=== PATIENT | female | born 1965 ===

== ENCOUNTER 2017-03-14 11:37 | Observation (INO) | payer MEDICAID ==
--- NOTE | 2017-03-14 11:58 | DR.H&P ---
H&P - History & Physical for Day of: H&P Date: 03/14/17 - Chief Complaint Chief Complaint: SOB/increasing peripheral edema - History of Present Illness History of Present Illness: Pt is a 52 y/o BF with h/o CHF. Pt seen in the office twice this week due to increasing peripheral edema and increasing SOB and has been refusing admission. Pt has been given IM lasix on two different occasions in the office this week and has continued to gain wt - 5 lb wt gain this week. Pt is being admitted for further w/u due to outpt tx failure. - Past Medical History Past Medical History: CHF (PAD) - Social History Does patient currently use any type of tobacco product: No Have you used tobacco products in the last 12 months: No Alcohol Use: None Drug Use: None - Review of Systems Constitutional: See HPI Eyes: No Symptoms Reported ENT: No Symptoms Reported Respiratory: No Symptoms Reported Cardiovascular: See HPI Gastrointestinal: No Symptoms Reported Genitourinary: No Symptoms Reported Musculoskeletal: No Symptoms Reported Skin: No Symptoms Reported Neurological: No Symptoms Reported Oriented: Normal Eyes: Normal Ear: Normal Nose: Normal Throat: Normal Respiratory: RLL Rales, LLL Rales Cardiovascular: Normal Auscultation: Bowel Sounds: Normal Palpation: Normal Tenderness: Normal Skin: Normal Musculoskeletal: Normal Psychiatric: Normal Mood Description: Calm Affect: Angry Speech Pattern: Clear - Assessment/Plan (1) Acute CHF Qualifiers: Congestive heart failure type: C Status: Acute Plan: see orders
[2017-03-14] MEDS ORDERED: LASIX IVP SCH (12:00)
--- NOTE | 2017-03-14 12:05 | DR.H&P ---
H&P - History & Physical for Day of: H&P Date: 03/14/17 - Chief Complaint Chief Complaint: SOB/increasing peripheral edema - History of Present Illness History of Present Illness: 52 y/o BF presented to the office for her 3rd visit this week c/o increasing SOB and peripheral edema. Pt has been previously given IM lasix on two occasionals this week and has continued to have a 5 lb wt gain this week. Pt was previously refusing admission but now is agreeable due to lack of improvement in her symptoms. Pt denies any chest pain or palpitations. Pt is being admitted due to outpt tx failure. - Past Medical History Past Medical History: CHF (PAD), Hypertension - Social History Does patient currently use any type of tobacco product: No Have you used tobacco products in the last 12 months: No Alcohol Use: None Drug Use: None - Review of Systems Constitutional: See HPI Eyes: No Symptoms Reported ENT: No Symptoms Reported Respiratory: See HPI Cardiovascular: No Symptoms Reported Gastrointestinal: No Symptoms Reported Genitourinary: No Symptoms Reported Musculoskeletal: No Symptoms Reported Skin: No Symptoms Reported Neurological: No Symptoms Reported Oriented: Normal Eyes: Normal Ear: Normal Nose: Normal Throat: Normal Respiratory: RLL Rales, LLL Rales Cardiovascular: Normal : Normal Auscultation: Bowel Sounds: Normal Palpation: Normal Tenderness: Normal Skin: Normal Musculoskeletal: Left, Thigh (edema), Leg (edema) Psychiatric: Normal Mood Description: Calm Affect: Normal - Assessment/Plan (1) Acute CHF Qualifiers: Congestive heart failure type: C Status: Acute Plan: 1. Admit due to outpt tx failure. 2. Telemetry. 3. O2 at 2L/min per NC. 4. CXR. 5. Lasix 40mg IV q 12 hours. 6. Continue home meds. 7. Serial EKG's and cardiac profiles. 8. Closely monitor BP. 9. For further orders see chart.
[2017-03-14 21:01] LABS: BASOPHILS # (AUTO) 0.1 X10^3/uL (0.0-0.1); EOSINOPHILS # (AUTO) 0.3 x10^3/uL (0.0-0.2); EOSINOPHILS % (AUTO) 3.4 % (0.9-2.9); HEMATOCRIT 36.4 % (36.0-47.0); HEMOGLOBIN 11.9 g/dL (12.0-16.0); LYMPHOCYTES # (AUTO) 2.5 X10^3/uL (1.3-2.9); MEAN CORPUSCULAR HEMOGLOBIN 25.2 pg (27.0-34.0); MEAN CORPUSCULAR HGB CONC 32.8 g/dL (33.0-35.0); MEAN CORPUSCULAR VOLUME 76.9 fL (80.0-100.0); MONOCYTES # (AUTO) 0.6 x10^3/uL (0.3-0.8); MONOCYTES % (AUTO) 7.6 % (0.0-13.0); NEUTROPHILS # (AUTO) 4.8 x10^3/uL (2.2-4.8); PLATELET COUNT 267 X10^3/uL (150.0-450.0); RED BLOOD COUNT 4.73 X10^6/uL (3.5-5.4); RED CELL DISTRIBUTION WIDTH 15.2 % (11.6-16.5); WHITE BLOOD COUNT 8.3 X10^3/uL (3.6-10.0)
[2017-03-14 21:27] LABS: ALANINE AMINOTRANSFERASE 38 Units/L (12-78); ALBUMIN 2.8 g/dL (3.4-5.0); ALKALINE PHOSPHATASE 101 Units/L (46-116); ASPARTATE AMINO TRANSFERASE 19 Units/L (15-37); BLOOD UREA NITROGEN 21 mg/dL (7-18); CALCIUM 8.6 mg/dL (8.5-10.1); CARBON DIOXIDE 24.4 mmol/L (21-32); CHLORIDE 110 mmol/L (98-107); CKMB % 1.4 % (<4); COR CA(FOR HYPOALB) 9.6 mg/dL (8.5-10.1); COR NA(FOR HYPERGLY) 147 mmol/L (136-145); CREATINE KINASE 122 Units/L (26-192); CREATINE KINASE MB 1.7 ng/mL (0-4.0); CREATININE 0.92 mg/dL (0.55-1.02); GLUCOSE 254 mg/dL (65-99); SODIUM 143 mmol/L (136-145); TOTAL PROTEIN 6.4 g/dL (6.4-8.2); TROPONIN I 0.21 ng/mL (0-1.5); eGFR BLACK RACES > 60 (>60); eGFR NON BLACK RACES > 60 (>60)
[2017-03-14 21:30] LABS: HYPOCHROMASIA SLIGHT; MICROCYTOSIS SLIGHT; PLATELET MORPHOLOGY COMMENT NORMAL (NORMAL)
[2017-03-14] MEDS: LASIX IVP SCH (23:00)
[2017-03-14 23:53] VITALS: BMI 33.3
[2017-03-15 01:29] LABS: BILIRUBIN,URINE NEGATIVE (NEGATIVE); BLOOD/HEMOGLOBIN,URINE 3+ (NEGATIVE); GLUCOSE, URINE 3+ (NEGATIVE); KETONES,URINE NEGATIVE (NEGATIVE); LEUKOCYTE ESTERASE ,URINE NEGATIVE (NEGATIVE); NITRITES,URINE NEGATIVE (NEGATIVE); PROTEIN,URINE 3+ (NEGATIVE); UROBILINOGEN,URINE NORMAL (NORMAL)
[2017-03-15 01:39] LABS: APPEARANCE,URINE CLEAR (CLEAR); BACTERIA,URINE TRACE /HPF (NEGATIVE); COLOR,URINE YELLOW (YELLOW); RBC,URINE 0-3 /HPF (NEGATIVE); SQUAMOUS EPITHELIAL CELL,UR MODERATE /HPF (NEGATIVE)
[2017-03-15 01:49] LABS: CKMB % 1.3 % (<4); CREATINE KINASE MB 1.6 ng/mL (0-4.0); TROPONIN I 0.2 ng/mL (0-1.5)
[2017-03-15 07:30] LABS: BASOPHILS # (AUTO) 0.1 X10^3/uL (0.0-0.1); BASOPHILS % (AUTO) 1.1 % (0.2-1.0); EOSINOPHILS # (AUTO) 0.3 x10^3/uL (0.0-0.2); EOSINOPHILS % (AUTO) 4.1 % (0.9-2.9); HEMATOCRIT 34.9 % (36.0-47.0); HEMOGLOBIN 11.5 g/dL (12.0-16.0); LYMPHOCYTES % (AUTO) 27.7 % (21.0-51.0); MEAN CORPUSCULAR HEMOGLOBIN 25.6 pg (27.0-34.0); MEAN CORPUSCULAR HGB CONC 33.1 g/dL (33.0-35.0); MEAN CORPUSCULAR VOLUME 77.5 fL (80.0-100.0); MEAN PLATELET VOLUME 9.3 fL (7.4-11.0); MONOCYTES # (AUTO) 0.5 x10^3/uL (0.3-0.8); MONOCYTES % (AUTO) 7.7 % (0.0-13.0); NEUTROPHILS # (AUTO) 4.2 x10^3/uL (2.2-4.8); NEUTROPHILS % (AUTO) 59.4 % (42.0-75.0); PLATELET COUNT 213 X10^3/uL (150.0-450.0); RED CELL DISTRIBUTION WIDTH 15.1 % (11.6-16.5); WHITE BLOOD COUNT 7.1 X10^3/uL (3.6-10.0)
[2017-03-15 07:31] LABS: HYPOCHROMASIA SLIGHT; PLATELET MORPHOLOGY COMMENT NORMAL (NORMAL)
[2017-03-15 07:45] LABS: ALANINE AMINOTRANSFERASE 38 Units/L (12-78); ALBUMIN 2.8 g/dL (3.4-5.0); ALKALINE PHOSPHATASE 94 Units/L (46-116); ASPARTATE AMINO TRANSFERASE 23 Units/L (15-37); BLOOD UREA NITROGEN 18 mg/dL (7-18); CALCIUM 8.3 mg/dL (8.5-10.1); CARBON DIOXIDE 27.9 mmol/L (21-32); CHLORIDE 108 mmol/L (98-107); COR CA(FOR HYPOALB) 9.3 mg/dL (8.5-10.1); COR NA(FOR HYPERGLY) 148 mmol/L (136-145); CREATININE 0.78 mg/dL (0.55-1.02); GLUCOSE 238 mg/dL (65-99); SODIUM 145 mmol/L (136-145); TOTAL PROTEIN 5.9 g/dL (6.4-8.2); eGFR BLACK RACES > 60 (>60); eGFR NON BLACK RACES > 60 (>60)
[2017-03-15 08:00] LABS: CKMB % 1.5 % (<4); CREATINE KINASE MB 1.7 ng/mL (0-4.0); TROPONIN I 0.21 ng/mL (0-1.5)
[2017-03-15] MEDS ORDERED: LASIX PO SCH (09:00)
[2017-03-15] MEDS: LASIX IVP SCH (10:52)
[2017-03-15] MEDS ORDERED: NORCO 10/325 TAB PO PRN (11:27)
[2017-03-15] MEDS ORDERED: PHENERGAN TAB 25 MG PO PRN (11:27)
[2017-03-15] MEDS ORDERED: ALDACTONE TAB 25 MG PO SCH (12:00)
[2017-03-15] MEDS ORDERED: COREG TAB 25 MG PO SCH (12:00)
[2017-03-15] MEDS ORDERED: CLARITIN PO SCH (12:00)
[2017-03-15] MEDS ORDERED: GLUCOPHAGE PO SCH (12:00)
[2017-03-15] MEDS ORDERED: PROTONIX TAB 40 MG PO SCH (12:00)
[2017-03-15] MEDS ORDERED: TOPROL XL PO SCH (12:00)
[2017-03-15] MEDS ORDERED: ZESTRIL TAB 20 MG PO SCH (12:00)
[2017-03-15] MEDS ORDERED: GLUCOPHAGE ONE (13:11)
[2017-03-15] MEDS ORDERED: ZESTRIL TAB 20 MG ONE (13:12)
[2017-03-15 14:05] VITALS: BP 156/93
--- NOTE | 2017-03-15 15:21 | RAD ---
HISTORY: Dyspnea and CHF. Study: Two views chest. Comparison: None. Findings: The trachea is midline. The cardiomediastinal silhouette is enlarged status post median sternotomy. There are small volume bibasilar effusions and there is right greater than left bibasilar airspace d isease with central vascular congestion also observed. These findings would imply CHF and bibasilar edema. Pneumonia in the lung bases should also be considered excluded. Please correlate with volume status. No pneumothorax. The bones are unremarkable. IMPRESSION: Cardiomegaly with central vascular congestion and bibasilar pleural parenchymal opacities which woul d imply CHF with small effusions/bibasilar edema. Please correlate. Reported By:
[2017-03-15] MEDS ORDERED: ZOCOR TAB 40 MG PO SCH (21:00)
== END 2017-03-15 18:50 | disposition home or self-care (01) ==
LOC: INTOOBSV 11:37 → MED/SURG 11:37 → UNDODISIN 03-15 18:50
PROVIDERS: ADMIT Internal Medicine; ATTEND Internal Medicine
DX: I50.9 Heart failure, unspecified (principal); R60.0 Localized edema; R06.02 Shortness of breath; R94.31 Abnormal electrocardiogram [ECG] [EKG]; I51.7 Cardiomegaly; R94.4 Abnormal results of kidney function studies; R73.09 Other abnormal glucose
CPT/HCPCS: 36415; 71020; 80053; 81001; 82550; 82553; 84484; 85025; 87086; 93005; 93010; 94760; A4222; G0378; J1940